=== PATIENT | male | born 1955 | race Caucasian/White ===

== ENCOUNTER → 2017-08-26 | Outpatient (CLI) | payer OTHER ==
[~2017-08-26] MED LIST: IMIPRAMINE HCL50 MG
== END | disposition home or self-care (01) ==
LOC: PPH VACUNA 14:45
DX: Z23 Encounter for immunization (principal)

== ENCOUNTER 2017-09-15 06:47 | Outpatient (CLI) | payer OTHER | END 2017-09-15 07:05 | disposition home or self-care (01) | LOC: LAB 06:47 | DX: E13.65 Other specified diabetes mellitus with hyperglycemia (principal) ==

== ENCOUNTER 2018-01-25 23:20 | Emergency (ER) | payer OTHER ==
[~2018-01-25] VITALS: Ht 177.8 cm; Wt 72.6 kg
== END 2018-01-26 03:08 | disposition home or self-care (01) ==
LOC: ER 23:20
DX: R31.29 Other microscopic hematuria (principal); R50.9 Fever, unspecified

== ENCOUNTER 2019-01-04 11:14 | Outpatient (CLI) | payer OTHER | END 2019-01-04 11:42 | disposition home or self-care (01) | LOC: SONOGRAMA 11:14 | DX: M19.90 Unspecified osteoarthritis, unspecified site (principal) ==

== ENCOUNTER 2021-04-16 08:00 | Outpatient (CLI) | payer OTHER | END 2021-04-16 08:30 | disposition home or self-care (01) | LOC: PPH VACUNA 08:00 | DX: Z23 Encounter for immunization (principal) ==

== ENCOUNTER → 2021-11-14 | Outpatient (CLI) | payer OTHER | END | disposition home or self-care (01) | LOC: PPH VACUNA 08:00 | PROVIDERS: ATTEND Emergency Medicine Pediatric Emergency Medicine | DX: Z23 Encounter for immunization (principal) ==

== ENCOUNTER 2023-02-12 09:35 | Outpatient (CLI) | payer OTHER | END 2023-02-12 09:40 | disposition home or self-care (01) | LOC: RAD 09:35 | PROVIDERS: ATTEND Orthopaedic Surgery | DX: Z01.818 Encounter for other preprocedural examination (principal); R07.9 Chest pain, unspecified; S83.241A Other tear of medial meniscus, current injury, right knee, initial encounter ==

== ENCOUNTER → 2023-02-27 | Emergency (ER) | payer OTHER | END | disposition left against medical advice (07) | LOC: ER 08:14 | DX: Z53.21 Procedure and treatment not carried out due to patient leaving prior to being seen by health care provider (principal) ==

== ENCOUNTER 2024-02-08 10:10 | Outpatient (CLI) | payer OTHER ==
[~2024-02-08 10:10] MED LIST changes: +CIALIS5 MG PO
[2024-02-08 11:36] LABS: CREATININE SERUM 1.1 mg/dL (0.70-1.30)
== END 2024-02-08 10:11 | disposition home or self-care (01) ==
LOC: LAB 10:10
PROVIDERS: ATTEND Radiology Diagnostic Radiology
DX: R10.30 Lower abdominal pain, unspecified (principal)

== ENCOUNTER 2024-02-11 07:17 | Outpatient (CLI) | payer OTHER | END 2024-02-11 08:13 | disposition home or self-care (01) | LOC: TOM 07:17 | PROVIDERS: ATTEND Internal Medicine Cardiovascular Disease | DX: R10.9 Unspecified abdominal pain (principal); C44.00 Unspecified malignant neoplasm of skin of lip | CPT/HCPCS: 74177; Q9965 ==

== ENCOUNTER 2024-02-16 07:02 | Outpatient (CLI) | payer OTHER | END 2024-02-16 07:10 | disposition home or self-care (01) | LOC: MRI 07:02 | PROVIDERS: ATTEND Internal Medicine Cardiovascular Disease | DX: R10.9 Unspecified abdominal pain (principal); K85.90 Acute pancreatitis without necrosis or infection, unspecified; K58.9 Irritable bowel syndrome, unspecified | CPT/HCPCS: 74182; Q9965 ==

== ENCOUNTER 2024-08-04 09:54 | Outpatient (CLI) | payer OTHER | END 2024-08-04 09:57 | disposition home or self-care (01) | LOC: RAD 09:54 | PROVIDERS: ATTEND Internal Medicine Cardiovascular Disease | DX: M12.9 Arthropathy, unspecified (principal); M10.9 Gout, unspecified ==

== ENCOUNTER 2025-03-05 13:19 | Outpatient (CLI) | payer OTHER | END 2025-03-05 13:23 | disposition home or self-care (01) | LOC: RAD 13:19 | PROVIDERS: ATTEND Internal Medicine Cardiovascular Disease | DX: M19.90 Unspecified osteoarthritis, unspecified site (principal) ==